=== PATIENT | female | born 1940 | race Hispanic/Latino ===

== ENCOUNTER → 2017-10-09 | Outpatient (CLI) | payer MEDICARE ==
[~2017-10-09] MED LIST: ASPIR 8181 MG; B-121000 MCG; CALTRATE PLUS1 EACH; CYCLOBENZAPRINE5 MG PO; DIATRIZOATE MEGL/DIATRIZOA SOD 30 ML BTL PO ONE; IOPAMIDOL 370 MG/ML 200 ML INFUS..BTL INJ ONE; METFORMIN HCL500 MG PO; RAMIPRIL5 MG PO; SIMVASTATIN40 MG PO; SODIUM CHLORIDE 0.9% 50ML 50 ML ONE; ULTRAM50 MG PO
[2017-10-09 09:59] LABS: BLOOD UREA NITROGEN 9 mg/dL (7-26); BUN/CREATININE RATIO 15 (6-25); EST GLOMERULAR FILTRATION RATE > 60 ML/MIN (60-)
--- NOTE | 2017-10-09 11:29 | Diagnostic Imaging Report ---
PROCEDURE:CT ABDOMEN AND PELVIS WITH CONTRAST COMPARISON:None. INDICATIONS:Right lower abdomen pain TECHNIQUE: Routine protocol Volumetric CT abdomen and pelvis after administration of 100 mL Isovue-370 intravenous contrast. Multiplanar reformatted images. DLP: 760.32 FINDINGS: Clear lung bases. No pleural effusions. Mild cardiomegaly. Extensive left anterior descending coronary artery calcification. Liver: Nodular contour with left lobe and caudate hypertrophy. Gallbladder: Cholecystectomy. No bile duct dilation. Pancreas: Normal Spleen: Diffusely enlarged; span 13 cm. Adrenal glands: Normal Kidneys: 2.8 cm left inferior pole simple cyst. 2 cm right superior pole cyst. Otherwise, normal bilaterally. Ureters and urinary bladder: Normal Uterus and adnexa: Hysterectomy Bowel: Normal caliber. Normal appendix. Sigmoid diverticulosis. Small sliding-type hiatal hernia. Peritoneum: Normal Vasculature: Normal arterial caliber with trace atherosclerosis. Enlarged, patent portal vein. Large splenorenal shunt. Lymph nodes: Normal Skeleton: Intact. Multilevel degenerative disc disease with severe L5-S1 facet arthropathy and suspected multilevel neural foramen stenosis. Soft tissues: Normal CONCLUSION: 1. Cirrhosis with associated sequela including large splenorenal shunt. 2. No conspicuous etiology for right lower quadrant pain. 3. Mild cardiomegaly with severe left anterior descending coronary artery calcification. 4. Small hiatal hernia. Dictated by: Rajan Leyva M.D. on 10/09/2017 at 11:32 Electronically approved by: Rajan Leyva M.D. on 10/09/2017 at 11:32
== END | disposition home or self-care (01) ==
LOC: CT 09:22
PROVIDERS: ATTEND Internal Medicine
DX: R10.30 Lower abdominal pain, unspecified (principal); K74.60 Unspecified cirrhosis of liver; I51.7 Cardiomegaly; I25.10 Atherosclerotic heart disease of native coronary artery without angina pectoris; I25.84 Coronary atherosclerosis due to calcified coronary lesion; K44.9 Diaphragmatic hernia without obstruction or gangrene; M51.37 Other intervertebral disc degeneration, lumbosacral region; M46.97 Unspecified inflammatory spondylopathy, lumbosacral region; M48.07 Spinal stenosis, lumbosacral region
CPT/HCPCS: 36415; 74177; 82565; 84520; Q9967

== ENCOUNTER 2018-09-07 20:31 | Emergency (ER) | payer MEDICARE ==
[~2018-09-07] VITALS: Ht 152.4 cm; Wt 83.9 kg
[~2018-09-07 20:31] MED LIST changes: -DIATRIZOATE MEGL/DIATRIZOA SOD 30 ML BTL PO ONE; -IOPAMIDOL 370 MG/ML 200 ML INFUS..BTL INJ ONE; -SODIUM CHLORIDE 0.9% 50ML 50 ML ONE
--- OUTSIDE RECORDS SUMMARY | 2018-09-07 20:34 | XMS REPORT ---
Author Author [facility] Address Unknown Phone Unavailable Care Team Providers Care Lifter Driver Name Role Phone NEGIN FLEMING Unavailable Unavailable Problems This patient has no known problems. Allergies, Adverse Reactions, Alerts This patient has no known allergies or adverse reactions. Medications This patient has no known medications. Results Test Description Test Time Test Comments Text Results Atomic Results Result Comments DIAG MAMM BILATERAL MELISAS CAD DIGITAL 2018-08-02 13:48:40 - DIAG MAMM BILATERAL MELISSA CAD DIGITALBILATERAL DIGITAL DIAGNOSTIC MAMMOGRAM 3D/2D WITH CAD: 08/02/2018CLINICAL: Focal pain, right breast. Digital breast tomosynthesis was performed in addition to routine CC and MLO views. Current mammographic images were evaluated by either a [employer] M-Vu or a miacosa ImageChecker CAD (computer aided detection system). Comparison is made to exams dated 09/05/2017 m ammogram, 01/18/2016 mammogram - [facility], and 07/13/2015 mammogram - [facility]. The tissue of both breasts is predominantly fatty. No suspicious mass, architectural distortion, malignant type calcification, or lymph node abnormality detected. INCOMPLETE ASSESSMENT: ADDITIONAL IMAGING EVALUATION RECOMMENDEDUltrasound pending for additional evaluation. Resume annual screening mammography in one year. - BREAST ULTRASOUND BILATERALULTRASOUND OF BOTH BREASTS AND BOTH AXILLA: 08/02/2018Comparison is made to exams dated 09/05/2017 mammogram, 01/18/2016 mammogram - [facility], and 07/13/2015 mammogram - [facility]. Real-time ultrasound of the right breast and axilla and real-time ultrasound of the left breast and axilla was performed. Hopkins scale images of the real-time examination were reviewed. No abnormalities were seen sonographically in either breast or either axilla. Clinical breast exam was unremarkable.IMPRESSION: NEGATIVE There is no sonographic evidence of malignancy. Resume annual screening mammography in one year. Monica Walter M.D. dm/:08/02/2018 13:48:40 Entry: located within [facility] 08/04/2018 09:30:27Imaging Technologist: Floridalma HENRY, [facility] BIRADS 1-2 Combo FU Letter Mammogram BI-RADS: 0 Indeterminate Ultrasound BI- RADS: 1 Negative BREAST ULTRASOUND BILATERAL 2018-08-02 13:48:40 - DIAG MAMM BILATERAL MELISSA CAD DIGITALBILATERAL DIGITAL DIAGNOSTIC MAMMOGRAM 3D/2D WITH CAD: 08/02/2018CLINICAL: Focal pain, right breast. Digital breast tomosynthesis was performed in addition to routine CC and MLO views. Current mammographic images were evaluated by either a [employer] M-Vu or a miacosa ImageGamestaq CAD (computer aided detection system). Comparison is made to exams dated 09/05/2017 m ammogram, [facility], and 07/13/2015 mammogram - [facility]. The tissue of both breasts is predominantly fatty. No suspicious mass, architectural distortion, malignant type calcification, or lymph node abnormality detected. INCOMPLETE ASSESSMENT: ADDITIONAL IMAGING EVALUATION RECOMMENDEDUltrasound pending for additional evaluation. Resume annual screening mammography in one year. - BREAST ULTRASOUND BILATERALULTRASOUND OF BOTH BREASTS AND BOTH AXILLA: 08/02/2018Comparison is made to exams dated 09/05/2017 mammogram, [facility]18[facility]2016 [facility], and 07/13/2015 mammogram - [facility]. Real-time ultrasound of the right breast and axilla and real-time ultrasound of the left breast and axilla was performed. Hopkins scale images of the real-time examination were reviewed. No abnormalities were seen sonographically in either breast or either axilla. Clinical breast exam was unremarkable.IMPRESSION: NEGATIVE There is no sonographic evidence of malignancy. Resume annual screening mammography in one year. Monica Walter M.D. dm/:08/02/2018 13:48:40 Entry: 08/04/2018 09:30:27Imaging Technologist: Floridalma HENRY, [facility]: BIRADS 1-2 Combo FU Letter Mammogram BI-RADS: 0 Indeterminate Ultrasound BI- RADS: [address] ABDOMEN/PELVIS W 2017-10-09 11:32:00 [facility] [address] [address] Patient Name: RITU MIGUEL MR #: [id number] : 1940 Age/Sex: 77/F Req #: [id number] Adm Physician: Ordered by: NEGIN FLEMING MD Report #: [id number] Location: CT Room/Bed: Procedure: [id number] CT/CT ABDOMEN/PELVIS W Exam Date: 10/09/17 Exam Time: 1050 REPORT STATUS: Signed PROCEDURE: CT ABDOMEN AND PELVIS WITH CONTRAST COMPARISON: None. INDICATIONS: Right lower abdomen pain TECHNIQUE: Routine protocol Volumetric CT abdomen and pelvis after administration of 100 mL Isovue-370 intravenous contrast. Multiplanar reformatted images. DLP: 760.32 FINDINGS: Clear lung bases. No pleural effusions. Mild cardiomegaly. Extensive left anterior descending coronary artery calcification. Liver: Nodular contour with left lobe and caudate hypertrophy. Gallbladder: Cholecystectomy. No bile duct dilation. Pancreas: Normal Spleen: Diffusely enlarged; span 13 cm. Adrenal glands: Normal Kidneys: 2.8 cm left inferior pole simple cyst. 2 cm right superior pole cyst. Otherwise, normal bilaterally. Ureters and urinary bladder: Normal Uterus and adnexa: Hysterectomy Bowel: Normal caliber. Normal appendix. Sigmoid diverticulosis. Small sliding-type hiatal hernia. Peritoneum: Normal Vasculature: Normal arterial caliber with trace atherosclerosis. Enlarged, patent portal vein. Large splenorenal shunt. Lymph nodes: Normal Skeleton: Intact. Multilevel degenerative disc disease with severe L5-S1 facet arthropathy and suspected multilevel ne ural foramen stenosis. Soft tissues: Normal CONCLUSION: 1. Cirrhosis with associated sequela including large splenorenal shunt. 2. No conspicuous etiology for right lower quadrant pain. 3. Mild cardiomegaly with severe left anterior descending coronary artery calcification. 4. Small hiatal hernia. Dictated by: [place] Leyva M.D. on 10/09/2017 at 11:32 Electronically approved by: [place] Leyva M.D. on 10/09/2017 at 11:32 Dictated By: ALBANIA LEYVA MD 1132 Transcribed By: IVÁN on 10/09/17 1132 COPY TO: NEGIN FLEMING MD
[2018-09-07] MEDS ORDERED: CLONIDINE HCL 0.1 MG TAB PO ONE (20:45)
[2018-09-07] MEDS ORDERED: TRAMADOL HCL 50 MG TAB PO ONE (20:45)
[2018-09-07] MEDS ORDERED: CLONIDINE HCL 0.1 MG TAB ONE (20:51)
[2018-09-07] MEDS ORDERED: TRAMADOL HCL 50 MG TAB ONE (20:52)
[2018-09-07 21:01] LABS: BILIRUBIN,URINE NEGATIVE (NEGATIVE); CLARITY,URINE SL CLOUDY (CLEAR); COLOR,URINE YELLOW (YELLOW); KETONES,URINE NEGATIVE (NEGATIVE); LEUKOCYTE ESTERASE ,URINE TRACE (NEGATIVE); NITRITE,URINE NEGATIVE (NEGATIVE); PROTEIN,URINE DIPSTICK NEGATIVE (NEGATIVE); URINE UROBILINOGEN 8 mg/dL (0.2 - 1)
[2018-09-07 21:12] LABS: BACTERIA,URINE MANY /HPF; EPITHELIAL CELLS,URINE MANY /LPF; WBC,URINE (MAN) 0-5 /HPF (0-5)
--- NOTE | 2018-09-07 21:45 | Diagnostic Imaging Report ---
EXAMINATION: Lumbar spine series. CLINICAL HISTORY: Low back pain COMPARISON: None. DISCUSSION: 3 views of the lumbar spine are submitted for interpretation. Five nonrib-bearing lumbar type vertebral bodies are identified. No acute, displaced fractures or subluxation. No spondylolisthesis. Marked multilevel degenerative disc changes with presence of large bridging osteophytes and intervertebral disc space narrowing worse at L3-L4 and L4-L5. Mild anterior wedge deformity of the L2 vertebral body. Other vertebral bodies are preserved. Facet hypertrophy L4-L5 and L5-S1. Nonobstructive bowel gas pattern. 6 mm well-circumscribed radiopaque density projecting over the right iliac bone on the frontal view IMPRESSION: 1. Marked multilevel degenerative disc changes worse at L3-L4 and L4-L5. 2. Mild anterior wedge deformity of the L2 vertebral body, likely reflecting age indeterminate compression deformity. 3. 6 mm well-circumscribed radiopaque density projecting over the right iliac bone on the frontal view projects outside of the bone in the lateral view and may represent a small calcified lymph node or contrast in a diverticulum. This finding is too lateral to represent a ureteral calculus. The staff physician below has personally reviewed this exam on the date of dictation. Signed by: Dr. Chapincito Osorio M.D. on 09/07/2018 9:42 PM
[2018-09-07 22:11] VITALS: BP 130/54
== END 2018-09-07 22:21 | disposition home or self-care (01) ==
LOC: ER 20:31
DX: M54.5 Low back pain (principal); S39.012A Strain of muscle, fascia and tendon of lower back, initial encounter; I10 Essential (primary) hypertension; Y93.E6 Activity, residential relocation; Y92.008 Other place in unspecified non-institutional (private) residence as the place of occurrence of the external cause; E11.9 Type 2 diabetes mellitus without complications; M81.0 Age-related osteoporosis without current pathological fracture
CPT/HCPCS: 72100; 81001; 99283

== ENCOUNTER 2019-01-11 20:33 | Observation (INO) | payer MEDICARE ==
[~2019-01-11] VITALS: Ht 157.5 cm; Wt 81.6 kg
[~2019-01-11 20:33] MED LIST changes: -B-121000 MCG; +B-121000 MCG PO
[2019-01-11 21:45] VITALS: BP 197/86
--- NOTE | 2019-01-11 22:00 | NUR ---
RECEIVED PATIENT PER STRETCHER FROM THE FREE STANDING, NO DISTRESS NOTED. FAMILY AT HER SIDE. PLACED IN ROOM, ASSESSMENT DONE, ON TELEMETRY. CALL LIGHT IN REACH. WILL CONTINUE TO MONITOR.
[2019-01-12] VITALS (8 sets, daily range): BP systolic 150–176; BP diastolic 65–76
--- NOTE | 2019-01-12 01:33 | NUR ---
LAB DRAWN, FAMILY REMAIN AT THE BEDSIDE. NO COMPLAINTS OF CHEST PAINS.
[2019-01-12 01:55] LABS: CREATINE KINASE MB < 1.00 ng/mL (0-4.3)
[2019-01-12 02:01] LABS: CREATINE KINASE 44 IU/L (29-168)
[2019-01-12 05:41] LABS: BASOPHILS % 0.7 % (0.0-1.0); EOSINOPHILS # (AUTO) 0.4 (0.0-0.4); EOSINOPHILS % 7.9 % (0.0-6.0); HEMATOCRIT 36.2 % (34.2-44.1); HEMOGLOBIN 12.5 g/dL (12.0-16.0); LYMPHOCYTES # (AUTO) 1.9 (1.0-3.2); LYMPHOCYTES % 42.5 % (18.0-39.1); MEAN CORPUSCULAR HEMOGLOBIN 34.1 pg (28-32); MEAN CORPUSCULAR HGB CONC 34.5 g/dL (31-35); MEAN CORPUSCULAR VOLUME 98.6 fL (81-99); MONOCYTES # (AUTO) 0.4 (0.2-0.8); NEUTROPHILS # (AUTO) 1.8 (2.1-6.9); NEUTROPHILS % 39.7 % (38.7-80.0); PLATELET COUNT 75 x10e3/uL (140-360); RED BLOOD COUNT 3.67 x10e6/uL (3.6-5.1); RED CELL DISTRIBUTION WIDTH 13.1 % (11.7-14.4)
[2019-01-12 05:57] LABS: CHOL/HDL RATIO 3.9 (3.0-3.6)
[2019-01-12 05:59] LABS: ANION GAP 12.8 mmol/L (8-16); BLOOD UREA NITROGEN 8 mg/dL (7-26); BUN/CREATININE RATIO 15 (6-25); CALCIUM 8.7 mg/dL (8.4-10.2); CARBON DIOXIDE 22 mmol/L (22-29); CHLORIDE 108 mmol/L (98-107); CREATININE, SERUM 0.55 mg/dL (0.57-1.11); EST GLOMERULAR FILTRATION RATE > 60 ML/MIN (60-); GLUCOSE 92 mg/dL (74-118); POTASSIUM 3.8 mmol/L (3.5-5.1); SODIUM 139 mmol/L (136-145)
--- NOTE | 2019-01-12 06:56 | NUR ---
PATIENT CONTINUE RESTING, NO COMPLAINTS OF CHEST PAINS, TELEMETRY REMAIN INTACT, CALL LIGHT IN REACH. REPORT GIVEN TO ONCOMING NURSE.
[2019-01-12 07:16] LABS: CREATINE KINASE MB 1.7 ng/mL (0-5.0)
--- NOTE | 2019-01-12 07:38 | NUR ---
H&P cc: chest pain HPI: 78yoF, PCP , developed substernal cp. Now 0/10 pain; no sob. no dizziness. never had a stress test. PMH: DM2, HTN, HLD, arthritis PSHx: hysterectomhy, eye Allergies; see emr FH/SH:; no etoh/cigs; Meds; see MAR ROS: no f/c/s/N/V/D/BURCH/vision changes/dizziness/skin changes/ v/s; revd PE nad anicteric ns1s2 mod bs soft nt nd no e/t skin dry n. affect amos a&ox3; labs/med;s revd A/P: 78yoF Atypical CP Obesity BMI 32.9 Hypertensive Emergency DM2 HLD PLAN trend enzymes hba1c/lipids BB/aceI/ASA/statin Prop: lovenox; ppi Dispo: trned enzymes; check echo. Jayesh Kline MD, PhD.
[2019-01-12] MEDS: FAMOTIDINE 20 MG/2 ML VIAL IV SCH ×2 (08:52→17:00)
[2019-01-12] MEDS ORDERED: NON-FORMULARY MEDICATION (Cyanocobalamin (Vitamin B-12) (B-12) 1,000 MCG) PO SCH (09:00)
[2019-01-12] MEDS ORDERED: CYANOCOBALAMIN 1,000 MCG TAB PO SCH (09:00)
[2019-01-12] MEDS ORDERED: SIMVASTATIN 40 MG TAB PO SCH (09:00)
[2019-01-12] MEDS ORDERED: ASPIRIN 325 MG TAB PO SCH (09:00)
[2019-01-12 13:47] LABS: CREATINE KINASE MB 1.7 ng/mL (0-5.0)
--- NOTE | 2019-01-12 14:07 | NUR ---
ADDENDUM: H&P cc: chest pain HPI: 78yoF, PCP , developed substernal cp. Now 0/10 pain; no sob. no dizziness. never had a stress test. PMH: DM2, HTN, HLD, arthritis PSHx: hysterectomhy, eye Allergies; see emr FH/SH:; no etoh/cigs; Meds; see MAR ROS: no f/c/s/N/V/D/BURCH/vision changes/dizziness/skin changes/ v/s; revd PE nad anicteric ns1s2 mod bs soft nt nd no e/t skin dry n. affect amos a&ox3; labs/med;s revd A/P: 78yoF Atypical CP Obesity BMI 32.9 Hypertensive Emergency DM2 HLD PLAN trend enzymes hba1c/lipids BB/aceI/ASA/statin Prop: lovenox; ppi Dispo: trned enzymes; check echo. ADDENDUM: Hba1c 5.8, LDL 98. cont statin; ADA diet; Tn negative x3; echo pending; Plan for Stress test outpt with . Jayesh Kline MD, PhD.
[2019-01-12] MEDS ORDERED: ENOXAPARIN SOD INJ 40 MG/0.4 ML SYR SC SCH (17:00)
--- NOTE | 2019-01-14 13:59 | NUR ---
D/C summary Principal Dx: Atypical CP Obesity BMI 32.9 Hypertensive Emergency Seocndary Dx: DM2 HLD PLAN trend enzymes hba1c/lipids BB/aceI/ASA/statin Prop: lovenox; ppi Dispo: trned enzymes; check echo. ADDENDUM: Hba1c 5.8, LDL 98. cont statin; ADA diet; Tn negative x3; echo pending; Plan for Stress test outpt with . f/u pcp 1 week and within 7 days stable d/c>35mins d/c home Jayesh Kline MD, PhD.
== END 2019-01-12 17:52 | disposition home or self-care (01) ==
LOC: IMCU 21:10
PROVIDERS: ADMIT Internal Medicine; ATTEND Internal Medicine
DX: R07.89 Other chest pain (principal); E66.9 Obesity, unspecified; I16.1 Hypertensive emergency; E11.9 Type 2 diabetes mellitus without complications; E78.5 Hyperlipidemia, unspecified; Z68.32 Body mass index [BMI] 32.0-32.9, adult; M19.90 Unspecified osteoarthritis, unspecified site; Z79.82 Long term (current) use of aspirin; Z79.84 Long term (current) use of oral hypoglycemic drugs
CPT/HCPCS: 36415; 80048; 80061; 82550; 82553; 82948; 83036; 84484; 85025; 93005; 93306; G0378 ×2; J1650

== ENCOUNTER → 2019-02-19 | Outpatient (CLI) | payer MEDICARE ==
[~2019-02-19] MED LIST changes: +REGADENOSON 0.4 MG/5 ML SYR IV ONE
--- NOTE | 2019-02-20 18:22 | Myoview Stress Test ---
DATE OF STUDY: 02/19/2019 07:49:00 Stress Test - Treadmill ONLY PROCEDURE: Nuclear stress report. PROCEDURE IN DETAIL: Pharmacologic stress testing was performed with regadenoson per protocol. The heart rate was 55 beats per minute at rest and increased to 69 beats per minute during the regadenoson infusion. The resting blood pressure was 187/71 mmHg and decreased to 167/60 mmHg, which is a normal response. Next, the resting electrocardiogram demonstrated normal sinus rhythm with right ventricular conduction delay. There were no ST-segment changes suggestive of myocardial ischemia. Next, myocardial perfusion imaging was performed at rest following the injection of 11 mCi of tetrofosmin. At peak pharmacologic effect, the patient was injected with 33 mCi of tetrofosmin. Gated post-stress tomographic imaging was performed. FINDINGS: The overall quality of study is fair. Left ventricular cavity is noted to be normal size on the rest and stress studies. SPECT images demonstrate a small mild perfusion defect in the anterior wall on stress that is not present at rest. Gated SPECT imaging reveals normal myocardial thickening and wall motion. Left ventricular ejection fraction was calculated to be 62%. IMPRESSION: Myocardial perfusion imaging is abnormal. There is a small area of ischemia on the inferior wall. Overall, left ventricular systolic function was normal without regional wall motion abnormalities. Mariama Kimball MD ABS/MODL /[id number]
== END ==
LOC: NM 07:36
PROVIDERS: ATTEND Internal Medicine Cardiovascular Disease
DX: R07.9 Chest pain, unspecified (principal)
CPT/HCPCS: 78452; 93017; A9502

== ENCOUNTER → 2019-02-28 | Day surgery (SDC) | payer MEDICARE ==
--- NOTE | 2019-02-27 12:00 | NUR ---
Pt arrived in general good physical health for interview of scheduled procedure. Review of medical history and current medications. Procedural consent, pre-op orders, and Hibiclens bath education completed. Patient declining [employer] and requesting Etelvina Leija (granddaughter) to interpret. Pt not sure if she had received vaccines, requesting to follow up with her doctor after procedure. All questions clarified and or answered where appropriate. pt verbalizes understanding to include day of procedure expectations. - f
[2019-02-27 12:46] LABS: BASOPHILS % 0.5 % (0.0-1.0); EOSINOPHILS # (AUTO) 0.4 (0.0-0.4); HEMATOCRIT 37.3 % (34.2-44.1); LYMPHOCYTES # (AUTO) 1.9 (1.0-3.2); LYMPHOCYTES % 42.2 % (18.0-39.1); MEAN CORPUSCULAR HEMOGLOBIN 34.1 pg (28-32); MEAN CORPUSCULAR HGB CONC 34.9 g/dL (31-35); MEAN CORPUSCULAR VOLUME 97.9 fL (81-99); MONOCYTES # (AUTO) 0.4 (0.2-0.8); MONOCYTES % 8.2 % (4.4-11.3); NEUTROPHILS # (AUTO) 1.8 (2.1-6.9); NEUTROPHILS % 41.1 % (38.7-80.0); PLATELET COUNT 88 x10e3/uL (140-360); RED BLOOD COUNT 3.81 x10e6/uL (3.6-5.1); RED CELL DISTRIBUTION WIDTH 13.6 % (11.7-14.4)
[2019-02-27 12:56] LABS: INR 1.19; PROTHROMBIN TIME 15.7 seconds (11.9-14.5)
[2019-02-27 13:02] LABS: ALANINE AMINOTRANSFERASE 14 IU/L (0-55); ALBUMIN 2.8 g/dL (3.5-5.0); ALBUMIN/GLOBULIN RATIO 0.8 (0.8-2.0); ALKALINE PHOSPHATASE 133 IU/L (40-150); ANION GAP 10.6 mmol/L (8-16); BLOOD UREA NITROGEN 9 mg/dL (7-26); BUN/CREATININE RATIO 14 (6-25); CALCIUM 8.9 mg/dL (8.4-10.2); CARBON DIOXIDE 26 mmol/L (22-29); CHLORIDE 106 mmol/L (98-107); CREATININE, SERUM 0.63 mg/dL (0.57-1.11); EST GLOMERULAR FILTRATION RATE > 60 ML/MIN (60-); GLUCOSE 171 mg/dL (74-118); POTASSIUM 3.6 mmol/L (3.5-5.1); SODIUM 139 mmol/L (136-145)
[~2019-02-28] VITALS: Ht 152.4 cm; Wt 82.6 kg
[2019-02-28] VITALS (9 sets, daily range): BP systolic 128–182; BP diastolic 59–85
[~2019-02-28] MED LIST changes: +AMLODIPINE BESYL5 MG PO; +ATORVASTATIN CA40 MG PO; +FENTANYL CITRATE/PF 100MCG/2 ML INJ ONE; +FUROSEMIDE40 MG PO; +HEPARIN SOD/SOD CHLORIDE 2,000 ML ONE; +IOPAMIDOL 370 MG/ML 200 ML INFUS..BTL INJ ONE; +LACTULOSE20 GM/30 M PO; +LIDOCAINE HCL 2% LOCAL 20 ML VIAL ONE; +MELOXICAM7.5 MG PO; +METFORMIN HCL1000 MG PO; +MIDAZOLAM HCL 2 MG/2 ML VIAL ONE; +PROPRANOLOL HCL10 MG PO; +RAMIPRIL10 MG PO; -REGADENOSON 0.4 MG/5 ML SYR IV ONE; +SODIUM CHLORIDE 0.9% 1000ML 1,000 ML ONE; +VERAPAMIL HCL 2.5 MG/ML 2 ML VIAL ONE
--- NOTE | 2019-02-28 12:45 | NUR ---
5714 Bedside report received from MARISA Mendes. Alert oriented and appropriate, PERRLA, respirations even and unlabored to room air. Pulses x4 extremities equal and strong. Pedal pulses PT/DP x4 and marked. Cap fill brisk < 3 sec. Rt TR band approach NO gross issues pain,pallor pressure or dysrhythmia. Skin warm and dry integrity appears D/I. IV 20g to LH presents healthy w/o s/s of infiltration or complaint. Abdomen soft and supple. pt offered toileting, denies need to urinate or defecate. No personal affects with patient. Family at bedside. Pt and family verbalizes understanding of POC. Currently w/o complaint of pain or need. ds/rn
--- NOTE | 2019-02-28 14:00 | NUR ---
1400 RADIAL Compression removal: Initial Cuff volume 11 cc 1400 -5 cc Removed No hematoma/bleeding noted with normal neurovascular function. 1415 -5cc Removed No hematoma/ bleeding noted with normal neurovascular function. Air removal completed. Stasis achieved sterile 2x2,Tegaderm, Coban dressing No hematoma, bleeding noted with normal neurovascular function. Wrist splint in place. Pt instructed on POC. Ds/Rn
--- NOTE | 2019-02-28 14:30 | NUR ---
1430 Pt meets DC criteria. Rt TR band site assessed for s/s of complication and presence of hematoma. Skin warm, dry, no discolor, and pulses present. IV removed from left hand. Distal tip appears intact. VS WNL. Pt denies pain, sob, or need at this time. Family at bedside Review of discharge paperwork and follow up instructions. verbalized understanding. Pt to wheelchair and transported to front of hospital. Transferred to private vehicle under own strength w/o incident with DC paperwork in hand. - ds/rn
--- NOTE | 2019-02-28 18:02 | Operative Report ---
DATE OF PROCEDURE: SURGEON: Richard Mayen DO PROCEDURES PERFORMED: 1. Conscious sedation, 30 minutes. 2. Selective coronary angiography x2. 3. Left heart catheterization. PREPROCEDURE DIAGNOSIS: Abnormal stress test. POSTPROCEDURE DIAGNOSIS: Nonobstructive coronary artery disease. ESTIMATED BLOOD LOSS: Less than 10 mL. SPECIMENS REMOVED: None. PROCEDURE IN DETAIL: After informed consent was obtained, the patient was brought to the cardiac catheterization laboratory in a fasting and nonsedated state. Bilateral groins were prepped and draped in the usual sterile fashion. Her right wrist was prepped and draped in the usual sterile fashion. A 2% lidocaine was infiltrated over the right anterior wrist for local anesthesia. Using a micropuncture needle, the right radial artery was accessed via modified Seldinger technique and a 5/6 Slender sheath was placed. The patient received fentanyl and midazolam and was monitored by myself and nursing staff. Diagnostic coronary angiography and left heart catheterization was performed using a TIG catheter. Diagnostic imaging revealed nonobstructive coronary artery disease. Catheter was removed over the wire. Hemostasis was achieved via TR band. The patient tolerated the procedure well with no immediate complications and transported back to room in stable condition. PROCEDURAL FINDINGS: 1. Left main coronary artery is patent without significant disease. 2. Left anterior descending coronary artery has diffuse luminal irregularities. 3. The left circumflex coronary artery provides 3 obtuse marginal vessels. There is a 40% to 50% stenosis between the 2nd and 3rd obtuse marginal. 4. The right coronary artery is a dominant vessel and provides posterior descending coronary artery. There is a mid 20% to 30% RCA stenosis. There is a distal RCA 40% stenosis. 5. Left ventricular end-diastolic pressure is 12 mmHg. IMPRESSION: Nonobstructive coronary artery disease. RECOMMENDATIONS: Medical management. Richard Mayen DO BM/MODL /[id number]
== END | disposition home or self-care (01) ==
LOC: CATH LAB 10:24
PROVIDERS: ATTEND Internal Medicine Cardiovascular Disease
DX: I25.10 Atherosclerotic heart disease of native coronary artery without angina pectoris (principal); R94.39 Abnormal result of other cardiovascular function study; I10 Essential (primary) hypertension; E11.9 Type 2 diabetes mellitus without complications; Z01.812 Encounter for preprocedural laboratory examination; Z79.82 Long term (current) use of aspirin; Z79.84 Long term (current) use of oral hypoglycemic drugs
CPT/HCPCS: 36415; 80053; 85025; 85610; 93458; C1887; J2001; J2250; J3010; J7030; Q9967; 99152

== ENCOUNTER 2019-03-04 19:30 | Observation (INO) | payer MEDICARE ==
[~2019-03-04] VITALS: Ht 157.5 cm; Wt 82.6 kg
[~2019-03-04 19:30] MED LIST changes: -AMLODIPINE BESYL5 MG PO; -ATORVASTATIN CA40 MG PO; -FENTANYL CITRATE/PF 100MCG/2 ML INJ ONE; -FUROSEMIDE40 MG PO; -HEPARIN SOD/SOD CHLORIDE 2,000 ML ONE; -IOPAMIDOL 370 MG/ML 200 ML INFUS..BTL INJ ONE; -LACTULOSE20 GM/30 M PO; -LIDOCAINE HCL 2% LOCAL 20 ML VIAL ONE; -MELOXICAM7.5 MG PO; -METFORMIN HCL1000 MG PO; -MIDAZOLAM HCL 2 MG/2 ML VIAL ONE; -RAMIPRIL10 MG PO; -SODIUM CHLORIDE 0.9% 1000ML 1,000 ML ONE; -VERAPAMIL HCL 2.5 MG/ML 2 ML VIAL ONE
[2019-03-04] MEDS ORDERED: ONDANSETRON HCL INJ 2MG/ML 2ML 2 MG/ML VIAL ONE (19:42)
[2019-03-04] MEDS ORDERED: SODIUM CHLORIDE 0.9% 1000ML 1,000 ML IV STA (20:00)
[2019-03-04 20:17] LABS: BASOPHILS # (AUTO) 0.1 (0.0-0.1); EOSINOPHILS # (AUTO) 0.4 (0.0-0.4); HEMATOCRIT 41.5 % (34.2-44.1); LYMPHOCYTES # (AUTO) 1.8 (1.0-3.2); MEAN CORPUSCULAR HEMOGLOBIN 33.8 pg (28-32); MEAN CORPUSCULAR HGB CONC 33.7 g/dL (31-35); MEAN CORPUSCULAR VOLUME 100.2 fL (81-99); MONOCYTES # (AUTO) 0.5 (0.2-0.8); MONOCYTES % 8.1 % (4.4-11.3); NEUTROPHILS # (AUTO) 3.2 (2.1-6.9); NEUTROPHILS % 53.6 % (38.7-80.0); PLATELET COUNT 110 x10e3/uL (140-360); RED BLOOD COUNT 4.14 x10e6/uL (3.6-5.1); RED CELL DISTRIBUTION WIDTH 13.5 % (11.7-14.4)
[2019-03-04 20:39] LABS: BILIRUBIN,URINE NEGATIVE (NEGATIVE); CLARITY,URINE SL CLOUDY (CLEAR); COLOR,URINE YELLOW (YELLOW); KETONES,URINE NEGATIVE (NEGATIVE); LEUKOCYTE ESTERASE ,URINE SMALL (NEGATIVE); NITRITE,URINE NEGATIVE (NEGATIVE); PROTEIN,URINE DIPSTICK NEGATIVE (NEGATIVE); URINE UROBILINOGEN 4 mg/dL (0.2 - 1)
[2019-03-04 20:51] LABS: BACTERIA,URINE MANY /HPF; RBC,URINE 0-5 /HPF (0-5)
--- NOTE | 2019-03-04 21:01 | Diagnostic Imaging Report ---
CT BRAIN WO HISTORY: Altered mental status COMPARISON: None. Technique: Noncontrast axial scans were obtained from skull base to the vertex. Coronal and sagittal reconstructions obtained from the axial data. One or more of the following dose reduction techniques were used: Automated exposure control, adjustment of the mA and/or kV according to patient size, and/or utilization of iterative reconstruction technique. DISCUSSION: Scalp/Skull: Unremarkable. Brain sulci: Mildly prominent. Ventricles: Compensatory dilatation. Extra-axial spaces: No masses or fluid collections. Carotid siphon calcifications are present. Parenchyma: Mild bilateral deep white matter hypodensity is likely chronic microvascular ischemic change. Otherwise, no masses, hemorrhage, or large vascular territory acute infarct. Dural sinuses: No abnormal densities. Sellar/Suprasellar region: Intact. Skull base: Intact. Incidental findings: The left ocular lens is thinned. IMPRESSION: 1. No acute intracranial abnormalities. 2. Mild supratentorial chronic microvascular ischemic change. Mild generalized cerebral volume loss. Signed by: Dr. Homar Oakley M.D. on 03/04/2019 8:58 PM
--- NOTE | 2019-03-04 21:01 | Diagnostic Imaging Report ---
Examination: Single AP view of the chest. COMPARISON: None. INDICATION: Altered mental status DISCUSSION: Lines/tubes: None. Lungs: The lungs are well inflated and clear. No pneumonia or pulmonary edema. Pleura: No pleural effusion or pneumothorax. Heart and mediastinum: The heart and the mediastinum are unremarkable. Bones and soft tissues: No acute bony abnormalities. IMPRESSION: 1. No acute cardiopulmonary abnormalities. Signed by: Dr. Naeem Macias M.D. on 03/04/2019 8:57 PM
[2019-03-04 21:02] LABS: ALANINE AMINOTRANSFERASE 14 IU/L (0-55); ALBUMIN/GLOBULIN RATIO 0.8 (0.8-2.0); ALKALINE PHOSPHATASE 130 IU/L (40-150); ANION GAP 18.1 mmol/L (8-16); BLOOD UREA NITROGEN 14 mg/dL (7-26); BUN/CREATININE RATIO 21 (6-25); CARBON DIOXIDE 20 mmol/L (22-29); CHLORIDE 105 mmol/L (98-107); CREATINE KINASE 68 IU/L (29-168); CREATININE, SERUM 0.67 mg/dL (0.57-1.11); EST GLOMERULAR FILTRATION RATE > 60 ML/MIN (60-); GLUCOSE 129 mg/dL (74-118); POTASSIUM 4.1 mmol/L (3.5-5.1); SODIUM 139 mmol/L (136-145)
[2019-03-04] MEDS ORDERED: PROMETHAZINE 12.5MG/ NACL 0.9% 50 ML ONE (21:08)
[2019-03-04] MEDS ORDERED: PROMETHAZINE 25MG/ NS 50ML (IV) IV ONE (21:15)
[2019-03-04] MEDS ORDERED: AMLODIPINE BESYL5 MG PO (21:20)
[2019-03-04] MEDS ORDERED: MELOXICAM7.5 MG PO (21:20)
[2019-03-04] MEDS ORDERED: ATORVASTATIN CA40 MG PO (21:20)
[2019-03-04] MEDS ORDERED: RAMIPRIL10 MG PO (21:20)
[2019-03-04] MEDS ORDERED: FUROSEMIDE40 MG PO (21:20)
[2019-03-04] MEDS ORDERED: METFORMIN HCL1000 MG PO (21:20)
[2019-03-04] MEDS ORDERED: CEFTRIAXONE SOD 1 GM/NS 50 ML 50 ML IV SCH (21:30)
[2019-03-04] MEDS ORDERED: SODIUM CHLORIDE 0.9% 50ML 50 ML ONE (22:18)
[2019-03-04] MEDS ORDERED: IOPAMIDOL 370 MG/ML 200 ML INFUS..BTL INJ ONE (22:19)
--- NOTE | 2019-03-04 22:29 | Diagnostic Imaging Report ---
CT Abdomen And Pelvis with Intravenous Contrast INDICATION: ^nausea/vomiting TECHNIQUE: Thin collimation axial images obtained from the diaphragm to the level of the pubic symphysis following the uneventful administration of 100 cc of low osmolar, nonionic intravenous contrast. Dose reduction techniques used: Automated exposure control, adjustment of the mAs and/or kVp according to patient size, standardized low-dose protocol, and/or iterative reconstruction technique. RADIATION DOSE: Total DLP: 814.58 mGy*cm Estimated effective dose: (DLP x 0.015 x size factor) mSv CTDIvol has been reviewed. It is below the limits set by the Radiation Protocol Committee (RPC). COMPARISON: No relevant priors. ABDOMEN FINDINGS: Lung Bases: Mild bibasilar atelectasis. The heart is mildly enlarged. Liver: Diffusely lobulated in contour. There is a nonocclusive thrombus in the main portal vein. No distress formation. No evidence for mass. Gallbladder: Absent. Biliary tree: The proximal common bile duct measures 12 mm. The distal common bile duct measures 7 mm with squaring of the shoulders. No intrahepatic biliary ductal dilatation. Pancreas: Normal attenuation without mass or ductal dilatation. Spleen: Measures 14 cm in length. The splenic vein is markedly dilated and tortuous without thrombus. Splenorenal shunt is present. No mass. Adrenal Glands: No evidence for mass. Kidneys: Right: Normal enhancement. A cyst in the upper pole measures 17 mm. There is mild fullness of the collecting system without perinephric inflammation. Left: Normal enhancement. A cyst in the lateral interpolar cortex measures 2.8 x 2.7 cm. A tiny cyst is in the lower pole. No hydronephrosis. Lymph Nodes: No enlarged abdominal or periaortic lymph nodes. Aorta: Mildly tortuous. No aneurysmal dilatation. SMV: Patent. IMP: Patent. PELVIS FINDINGS: Bowel: Stomach: Distended with air but otherwise normal. Small Bowel: Normal in caliber with normal wall thickness. Large Bowel: There are a few scattered diverticula without associated inflammation. No focal mural thickening or pericolonic inflammation. There is pelvic floor laxity with inferior displacement of the rectum. Appendix: Normal appendix. Bladder: Well distended and normal in appearance and position. Ureters: The right ureter is normal in diameter throughout its course. There is a calcification in the right gonadal vein immediately adjacent to the mid right ureter. There are no ureteral calculi. The uterus is absent. No adnexal mass. Peritoneum/retroperitoneum: No free fluid or fluid collection. Bones: Diffusely demineralized. There are compression fractures of the L1 and L3 vertebral bodies of approximately 30%. The spinal canal is widely patent. No lytic or blastic lesions. Soft tissues: Unremarkable. IMPRESSION: 1. 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 Cirrhosis and splenomegaly with large splenorenal shunt. Recommend dynamic contrast enhanced CT of the abdomen to exclude tumor thrombus within the portal vein. No ascites. No intrahepatic mass. 2. Cholecystectomy and prominent common bile duct, possibly due to reservoir effect. No intrahepatic biliary ductal dilatation or pancreas mass. 3. Mild burden of diverticulosis coli. No evidence for bowel obstruction or inflammation. Normal appendix. 4. Pelvic floor laxity with rectocele. 5. Bilateral renal cysts. 6. Mild prominence of the right renal collecting system without evidence of hydroureter or ureteral calculus. Signed by: Dr. Linus Beckett MD on 03/04/2019 10:26 PM
[2019-03-04 23:00] VITALS: BP 136/56
[2019-03-04 23:06] VITALS: BP 136/56
[2019-03-05] VITALS (8 sets, daily range): BP systolic 125–148; BP diastolic 55–69
--- NOTE | 2019-03-05 06:32 | NUR ---
H&P cc: confusion HPI: 78yoF, PCP , developed confusion, found to have hepatic encephalopathy. PMH: DM2, HTN, HLD, arthritis, atypical chest pain, Hypertensive emergency PSHx: hysterectomhy, eye Allergies; see emr FH/SH:; no etoh/cigs; Meds; see MAR ROS: no f/c/s/N/V/D/BURCH/vision changes/dizziness/skin changes/ v/s; revd PE nad anicteric ns1s2 mod bs soft nt nd no e/t skin dry n. affect amos confused; awake labs/med;s revd A/P: 78yoF Hepatic encephalopathy Hyperammonemia UTI Cirrhosis portal vein thrombosis DM2 HLD PLAN Lactulose IV abx hba1C/lipids home meds PT consult scd Jayesh Kline MD, PhD.
[2019-03-05] MEDS ORDERED: LACTULOSE SYRUP 20 GM/30 ML UDC PO SCH ×2 (07:30→09:00)
[2019-03-05] MEDS: LACTULOSE SYRUP 20 GM/30 ML UDC PO SCH ×3 (08:55→23:00)
[2019-03-05] MEDS: FUROSEMIDE 40 MG TAB PO SCH (08:55)
[2019-03-05] MEDS: FAMOTIDINE 20 MG TAB PO SCH ×2 (08:55→16:30)
[2019-03-05] MEDS: AMLODIPINE BESYLATE 5 MG TAB PO SCH (08:56)
--- NOTE | 2019-03-05 14:40 | NUR ---
Visit made by the Spiritual Care Department Pastoral Visitor, Lexii Borja. PV provided pastoral presence, hospitality, and supportive listening. Pastoral Visitor informed pt/family of the scope of [employer] and availability. DEONDRE HUNTLEY Health Education Aide Spiritual Care Department O: [phone] Pager: [phone] ([phone] calling from)
[2019-03-06 01:21] VITALS: BP 148/67
[2019-03-06 05:11] VITALS: BP 130/63
[2019-03-06 05:40] LABS: BASOPHILS % 0.5 % (0.0-1.0); EOSINOPHILS # (AUTO) 0.4 (0.0-0.4); EOSINOPHILS % 7.1 % (0.0-6.0); HEMATOCRIT 37.8 % (34.2-44.1); HEMOGLOBIN 13.4 g/dL (12.0-16.0); LYMPHOCYTES # (AUTO) 1.6 (1.0-3.2); LYMPHOCYTES % 29.4 % (18.0-39.1); MEAN CORPUSCULAR HEMOGLOBIN 34.1 pg (28-32); MEAN CORPUSCULAR HGB CONC 35.4 g/dL (31-35); MEAN CORPUSCULAR VOLUME 96.2 fL (81-99); MONOCYTES # (AUTO) 0.6 (0.2-0.8); MONOCYTES % 10.1 % (4.4-11.3); NEUTROPHILS # (AUTO) 2.9 (2.1-6.9); NEUTROPHILS % 52.7 % (38.7-80.0); PLATELET COUNT 94 x10e3/uL (140-360); RED BLOOD COUNT 3.93 x10e6/uL (3.6-5.1); RED CELL DISTRIBUTION WIDTH 13.6 % (11.7-14.4)
--- NOTE | 2019-03-06 05:52 | NUR ---
D/C summary Principal Dx: Hepatic encephalopathy Hyperammonemia UTI Hypokalemia Physical deconditioning Secondary Dx Cirrhosis portal vein thrombosis DM2 HLD PLAN Lactulose IV abx hba1C/lipids home meds PT consult scd 11- ammonia now 109. hepatitis panel pending; Replace K; get PT- must be cleared for home; Home PT. D/W daughter by phone D/C >35mins stable d/c home with PT f/u pcp 1 week Jayesh Kline MD, PhD.
[2019-03-06 05:57] LABS: ALANINE AMINOTRANSFERASE 13 IU/L (0-55); ALBUMIN 2.8 g/dL (3.5-5.0); ALBUMIN/GLOBULIN RATIO 0.8 (0.8-2.0); ALKALINE PHOSPHATASE 91 IU/L (40-150); ANION GAP 12.9 mmol/L (8-16); BLOOD UREA NITROGEN 11 mg/dL (7-26); BUN/CREATININE RATIO 17 (6-25); CALCIUM 8.9 mg/dL (8.4-10.2); CARBON DIOXIDE 26 mmol/L (22-29); CHLORIDE 105 mmol/L (98-107); CREATININE, SERUM 0.65 mg/dL (0.57-1.11); EST GLOMERULAR FILTRATION RATE > 60 ML/MIN (60-); GLUCOSE 113 mg/dL (74-118); SODIUM 141 mmol/L (136-145)
[2019-03-06 06:08] LABS: POTASSIUM 2.9 mmol/L (3.5-5.1)
[2019-03-06] MEDS ORDERED: LACTULOSE20 GM/30 M PO (06:11)
[2019-03-06] MEDS: LACTULOSE SYRUP 20 GM/30 ML UDC PO SCH ×2 (06:12→14:43)
--- NOTE | 2019-03-06 06:16 | NUR ---
Received critical Dr Kline here for rounding. Orders received
[2019-03-06] MEDS ORDERED: POTASSIUM CHLORIDE 20 MEQ TAB CR PO NR (06:45)
[2019-03-06 07:08] LABS: PLATELET ESTIMATE SLIGHTLY DECREASED; RBC MORPHOLOGY COMMENT NORMAL
[2019-03-06 07:09] LABS: PLATELET MORPHOLOGY COMMENT FEW LARGE
[2019-03-06 08:11] VITALS: BP 137/53
[2019-03-06] MEDS: AMLODIPINE BESYLATE 5 MG TAB PO SCH (08:41)
[2019-03-06] MEDS: FUROSEMIDE 40 MG TAB PO SCH (08:41)
[2019-03-06] MEDS: FAMOTIDINE 20 MG TAB PO SCH (08:41)
[2019-03-06] MEDS ORDERED: SODIUM CHLORIDE 0.9% 250ML 250 ML ONE (08:47)
[2019-03-06] MEDS ORDERED: CEFTRIAXONE SOD 1 GM/NS 50 ML 50 ML IV SCH (09:00)
--- NOTE | 2019-03-06 09:03 | NUR ---
Home health referral faxed to [facility] with anticipated discharge for today.
[2019-03-06 09:41] VITALS: BP 137/53
[2019-03-06 12:03] VITALS: BP 165/76
--- NOTE | 2019-03-06 14:30 | NUR ---
Spoke to Sav with intake at [facility]. State they have received referral and will work on it now. States they should be able to accept pt. Will contact family once everything has been approved. Informed her that pt will discharge home today. She states they should be able to see pt either tomorrow or the next day. HOME HEALTH DISCHARGE NOTE PATIENT ADDRESS WHERE SERVICE WILL BE RECEIVED: [address], [place] [address] PATIENT CONTACT NUMBER: [phone] NAME OF HOME HEALTH COMPANY: [employer] [facility] TELEPHONE/FAX NUMBER OF COMPANY: P [phone] / F [phone] ADDRESS OF [place]: [facility] [id number], [place] [address] SERVICES TO RECEIVE: SN, PT/OT ANTICIPATED DATE SERVICES WILL BEGIN: March 07 or Please call the company above if you have not received a call to schedule a home visit within 24 hours of discharge.
[2019-03-06] MEDS ORDERED: POTASSIUM CHLORIDE 10MEQ EA PO ONE (15:00)
[2019-03-06 15:44] VITALS: BP 132/54
== END 2019-03-06 17:51 | disposition home health service (06) ==
LOC: ER 19:30 → ERHOLD 21:53 → IMCU 22:58 → MED/SURG2 03-05 20:19
PROVIDERS: ADMIT Internal Medicine; ATTEND Internal Medicine
DX: K72.90 Hepatic failure, unspecified without coma (principal); E72.20 Disorder of urea cycle metabolism, unspecified; N39.0 Urinary tract infection, site not specified; E87.6 Hypokalemia; K74.60 Unspecified cirrhosis of liver; E11.9 Type 2 diabetes mellitus without complications; I82.890 Acute embolism and thrombosis of other specified veins
CPT/HCPCS: 36415 ×2; 70450; 71045; 74177; 80053 ×2; 81001; 82140 ×2; 82550; 82553; 84132; 84484; 85025 ×2; 93005; 96374; 97116; 97139; 97161; 99284; G0378 ×3; J0696 ×2; J2405; J2550; J7030; J7050; Q9967